=== PATIENT | female | born 1985 | race Caucasian/White ===

== ENCOUNTER 2018-10-19 16:26 | Emergency (ER) | payer MEDICAID ==
[~2018-10-19] VITALS: Ht 152.4 cm; Wt 47.6 kg
[2018-10-19 16:34] VITALS: BP 140/86
[2018-10-19] MEDS ORDERED: TRIA15CR50 TP (17:33)
[2018-10-19] MEDS ORDERED: OXYC1TAB22 PO (17:33)
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
== END 2018-10-19 17:43 | disposition home or self-care (01) ==
LOC: ER 16:26
DX: G89.29 Other chronic pain (principal); M25.551 Pain in right hip; Z96.641 Presence of right artificial hip joint; Z88.0 Allergy status to penicillin; Z88.6 Allergy status to analgesic agent; Z88.1 Allergy status to other antibiotic agents; Z88.5 Allergy status to narcotic agent; Z88.8 Allergy status to other drugs, medicaments and biological substances
CPT/HCPCS: 99283